=== PATIENT | male | born 1955 | race Caucasian/White ===

== ENCOUNTER 2016-12-30 16:30 | Emergency (ER) | payer MEDICARE ==
[~2016-12-30] VITALS: Ht 175.3 cm; Wt 81.8 kg
[2016-12-30] MEDS ORDERED: NITR0.4D TD (16:53)
[2016-12-30] MEDS ORDERED: QUET20XRTB PO (16:53)
[2016-12-30] MEDS ORDERED: FENT10PA TD (16:53)
[2016-12-30] MEDS ORDERED: ATIV1TAB7 PO (16:53)
[2016-12-30] MEDS ORDERED: ADDE15CA3 PO ×2 (16:53)
[2016-12-30] MEDS ORDERED: OXYC20TA2 PO (16:53)
--- NOTE | 2016-12-30 17:36 | REP ---
Chest one-view HISTORY: Chest pain Comparison: None The lungs are clear. The heart is normal in size. The pulmonary vasculature is normal in appearance. An Mlnlpj-X-Zeul catheter is present. Impression: No acute disease. Signed by Joshua Regalado MD 12/30/2016 05:28 P
[2016-12-30 17:49] LABS: BASO % 0.3 % (0.0-1.0); EOS # 0.1 K/mm3 (0.0-0.50); EOS % 1.3 % (0.0-3.0); LARGE UNSTAINED CELL # 0.1 K/mm3 (0.0-0.4); LARGE UNSTAINED CELL % 1.4 % (0.0-4.0); LYMPH # 1.5 K/mm3 (1.5-4.5); LYMPH % 15.4 % (24.0-44.0); MEAN CORPUSCULAR HEMOGLOBIN 31.9 pg (27.0-33.0); MEAN CORPUSCULAR HGB CONC 35.5 g/dl (32.0-36.5); MONO # 0.4 K/mm3 (0.0-0.8); MONO % 4.2 % (0.0-5.0); NEUTROPHILS # 7.7 K/mm3 (1.8-7.7); NEUTROPHILS % 77.3 % (36.0-66.0); PLATELET COUNT, AUTOMATED 188 k/mm3 (150-450); RED CELL DISTRIBUTION WIDTH 13.6 % (11.5-14.5)
[2016-12-30 18:03] LABS: ALBUMIN 3.1 GM/DL (3.2-5.2); ALKALINE PHOSPHATASE 99 U/L (45-117); ANION GAP 8 MEQ/L (8-16); AST/SGOT 18 U/L (15-37); BILIRUBIN,DIRECT < 0.1 MG/DL (0.0-0.2); BILIRUBIN,TOTAL 0.4 MG/DL (0.2-1.0); BLOOD UREA NITROGEN 10 MG/DL (7-18); CARBON DIOXIDE LEVEL 31 MEQ/L (21-32); CHLORIDE LEVEL 102 MEQ/L (98-107); CREATININE FOR GFR 1.01 MG/DL (0.70-1.30); GLOMERULAR FILTRATION RATE > 60.0 (>49); GLUCOSE, FASTING 124 MG/DL (80-110); POTASSIUM SERUM 3.2 MEQ/L (3.5-5.1); SODIUM LEVEL 141 MEQ/L (136-145); TOTAL PROTEIN 6.2 GM/DL (6.4-8.2)
[2016-12-30 18:11] LABS: ALT/SGPT 21 U/L (12-78)
--- NOTE | 2016-12-30 18:21 | ECGEPIP ---
Stationary ECG Study [facility] - ED Test Date: 2016-12-30 Pat Name: santos shah Department: Room: - Gender: M Clinic Nurse: JT : 1955 Requested By: Bety Ruiz Order Number: [id number] Reading MD: Cyril Trevino Measurements Intervals [place] Rate: 62 P: 26 [place]: 182 QRS: 68 QRSD: 91 T: 74 QT: 415 QTc: 424 Interpretive Statements SINUS RHYTHM WITH SINUS ARRHYTHMIA NONSPECIFIC T-WAVE ABNORMALITY NO PRIORS Electronically Signed On 12-30-2016 18:21:28 EDT by Cyril Trevino
--- NOTE | 2016-12-30 18:28 | REP ---
CT HEAD WITHOUT CONTRAST: HISTORY: Infarction. COMPARISON: 11/07/2014 Areas of decreased attentuation are present in the periventricular white matter. This represents small vessel ischemic disease. There is no intraparenchymal hemorrhage, acute infarct mass or midline shift. The ventricular system and cortical sulci as well as subcoracoid space and the posterior fossa are dilated consistent with moderate volume loss. There is no extracerebral collection. The visualized sinuses are clear. IMPRESSION:1. Small vessel ischemic disease. 2. Moderate volume loss. Signed by Joshua Regalado MD 12/30/2016 06:58 P
[2016-12-30] MEDS ORDERED: POTASSIUM CHLORIDE 10 MEQ SR TABLET PO ONE (18:30)
[2016-12-30] MEDS ORDERED: ASPIRIN 325 MG TAB PO ONE (18:45)
[2016-12-30] MEDS ORDERED: TRAZ300T2 PO (18:50)
[2016-12-30 19:01] VITALS: BP 132/61
[2016-12-30] MEDS ORDERED: AMAN100C18 PO (19:32)
[2016-12-30] MEDS ORDERED: ASPI1TAB PO (19:32)
[2016-12-30] MEDS ORDERED: MELO15TA4 PO (19:32)
[2016-12-30] MEDS ORDERED: CHLO25TA PO (19:32)
[2016-12-30] MEDS ORDERED: MOVA1TAB2 PO (19:32)
[2016-12-30] MEDS ORDERED: FENO48TA2 PO (19:32)
[2016-12-30] MEDS ORDERED: CELE40TA PO (19:32)
[2016-12-30] MEDS ORDERED: CYCL10TA PO (19:32)
[2016-12-30] MEDS ORDERED: NITR0.4S14 SL (19:32)
[2016-12-30] MEDS ORDERED: COMBAER6 INH (19:32)
[2016-12-30] MEDS ORDERED: LORazepam 2 MG/ML VIAL (J2060) IV ONE (20:00)
--- NOTE | 2016-12-30 22:30 | REPUSA ---
MRI of the brain Clinical history: CVA. Technique: Multiecho multiplanar MRI images of the brain were obtained without administration of cont rast. Diffusion weighted images with ADC mapping was also obtained. Findings: The ventricles and sulci are symmetric but mildly enlarged bilaterally. The brain parenchyma demonstr ates small periventricular areas of T2 hyperintensity bilaterally. There is no midline shift, mass effect, or extra-axial fluid collection. The midline intracranial structures do not demonstrate any g ross abnormalities. The cervical cranial junction is intact. The orbits are unremarkable. The visuali zed paranasal sinuses and mastoid air cells are clear. The osseous structures and superficial soft ti ssues are unremarkable. The vascular structures demonstrate appropriate flow voids. Impression: No evidence of acute infarct or hemorrhage. Mild age-related atrophy and chronic small ve ssel ischemic disease.
--- NOTE | 2016-12-30 22:30 | REPUSA ---
MRA of the brain Clinical history: CVA. Technique: [id number] MRA images of the brain were obtained without administration of contrast. 3 -D MIP images were also obtained. Findings: The vascular structures extending from the distal carotid and vertebrobasilar arterial syst ems, through the [place], demonstrate normal caliber and contour. However, the right anterio r cerebral artery originates from the anterior communicating artery, and not the right middle cerebra l artery. This appears to be a congenital finding. There is no evidence of aneurysm, stenosis, or thr ombosis. Impression: No acute abnormality. 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
== END 2016-12-30 22:43 | disposition left against medical advice (07) ==
LOC: M ED 18:32
DX: R47.1 Dysarthria and anarthria (principal); R20.0 Anesthesia of skin; Q28.3 Other malformations of cerebral vessels; G31.89 Other specified degenerative diseases of nervous system; G93.89 Other specified disorders of brain; I67.82 Cerebral ischemia; G90.09 Other idiopathic peripheral autonomic neuropathy; F25.9 Schizoaffective disorder, unspecified; F17.200 Nicotine dependence, unspecified, uncomplicated; Z90.49 Acquired absence of other specified parts of digestive tract; Z79.899 Other long term (current) drug therapy
CPT/HCPCS: 36415; 70450; 70544; 70551; 71010; 80048; 80076; 82550; 82553; 83690; 83880; 84484; 85025; 93005; 93041; 94760; 96374; 96375; 99285; G0463; J2060; J3360